=== PATIENT | male | born 1940 | race Caucasian/White ===

== ENCOUNTER 2017-06-08 19:26 | Inpatient (IN) | payer MEDICARE, BC, OTHER ==
[2017-06-08 19:57] VITALS: BP 127/86; PULSE 120; RESP 18; TEMP 98.2; O2SAT 98
[2017-06-08] MEDS ORDERED: HYDR50CA PO (20:16)
[2017-06-08] MEDS ORDERED: MACR100C2 PO (20:16)
[2017-06-08] MEDS ORDERED: LORA-474 PO ×2 (20:16)
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
[2017-06-08] MEDS ORDERED: SODIUM CHLORID 0.9% 500 ML INJ 500 ML IV ONE (20:30)
[2017-06-08] MEDS ORDERED: LORazepam 1 MG TAB PO ONE (20:30)
[2017-06-08 21:18] LABS: ALT (GPT) 21 U/L (12-78); ANION GAP 7 MEQ/L (5-15); AST (GOT) 51 U/L (15-37); BICARBONATE 22.7 MEQ/L (21.0-32.0); BLOOD UREA NITROGEN 12 MG/DL (7-18); CHLORIDE 106 MEQ/L (98-107); GLOMERULAR FILTRATION RATE 70 ML/MIN (>89); SODIUM (NA) 136 MEQ/L (136-145)
[2017-06-08 21:23] LABS: ALCOHOL LESS THAN 3 MG/DL (0-5)
--- NOTE | 2017-06-08 21:23 | RADRPT ---
EXAM DATE/TIME: 06/08/2017 20:34 [facility] COMPARISON: No previous studies available for comparison. INDICATIONS : Chest pain. MEDICAL HISTORY : None. SURGICAL HISTORY : None. ENCOUNTER: Initial ACUITY: 1 day PAIN SCORE: 5/10 LOCATION: Bilateral chest FINDINGS: Minimal bibasilar streakiness is noted consistent with atelectasis and/or scarring. The heart is top normal in size. The pulmonary vascular pattern is normal. The lungs are otherwise clear. Degenerat hamilton changes and scoliosis of the thoracic spine are noted. CONCLUSION: 1. Minimal bibasilar streakiness consistent with atelectasis and/or scarring. 2. No pulmonary edema or focal alveolar consolidation to suggest pneumonia. 3. Degenerative changes and scoliosis of the thoracic spine. Jonh Schmidt MD on June 08, 2017 at 21:19 Board Certified Radiologist. This report was verified electronically.
[2017-06-08 21:26] LABS: POTASSIUM 5.1 MEQ/L (3.5-5.1)
[2017-06-08 21:27] LABS: ACETAMINOPHEN LESS THAN 2.0 MCG/ML (10.0-30.0)
[2017-06-08 21:28] LABS: ALKALINE PHOSPHATASE 87 U/L (45-117); TOTAL BILIRUBIN ADULT 0.5 MG/DL (0.2-1.0)
[2017-06-08 21:41] LABS: AUTOMATED NEUTROPHIL # 9.3 TH/MM3 (1.8-7.7); BASOPHIL # 0.1 TH/MM3 (0-0.2); BASOPHIL % 0.6 % (0.0-2.0); EOSINOPHIL # 0.2 TH/MM3 (0-0.4); EOSINOPHIL % 1.8 % (0.0-4.0); HEMATOCRIT 46.4 % (39.0-51.0); HEMO FLAGS DIFF FINAL; LYMPH % 10.2 % (9.0-44.0); LYMPHOCYTE # 1.2 TH/MM3 (1.0-4.8); MEAN CELL VOLUME 87.8 FL (80.0-100.0); MEAN CORPUSCULAR HEMOGLOBIN 27.8 PG (27.0-34.0); MEAN CORPUSCULAR HGB CONC 31.7 % (32.0-36.0); MONO % 9.9 % (0.0-8.0); NEUT % 77.5 % (16.0-70.0); PLATELET COUNT 298 TH/MM3 (150-450); RED BLOOD COUNT 5.29 MIL/MM3 (4.50-5.90); RED CELL DISTRIBUTION WIDTH 14.1 % (11.6-17.2); WHITE BLOOD COUNT 11.9 TH/MM3 (4.0-11.0)
[2017-06-08 21:48] VITALS: BP 133/79; PULSE 97; RESP 20; O2SAT 97
[2017-06-08] MEDS ORDERED: HALOPERIDOL LACTATE 5 MG/ML AMP IM ONE (22:00)
[2017-06-08] MEDS ORDERED: SODIUM CHLOR 0.9% 1000 ML INJ 1,000 ML IV ONE (22:00)
[2017-06-08 22:15] VITALS: TEMP 98.5
[2017-06-08 23:17] VITALS: BP 111/76; PULSE 74; RESP 20; O2SAT 98
--- NOTE | 2017-06-08 23:25 | EKG ---
Date Performed: 06/08/2017 Time Performed: 20:10:57 PTAGE: 77 years EKG: SINUS TACHYCARDIA WITH FIRST DEGREE AV BLOCK MARKED LEFT AXIS DEVIATION POSSIBLE OLD INFERI OR INFARCTION ABNORMAL ECG NO PREVIOUS TRACING DOCTOR: Tiburcio Holm Interpretating Date/Time 06/08/2017 23:24:41
[2017-06-08 23:31] LABS: BLOOD, URINE NEG (NEG); COMMENT (UR) CULT NOT INDICATED; CULTURE IF INDICATED CULT NOT INDICATED; GLUCOSE,URINE NEG (NEG); KETONE, URINE NEG (NEG); NITRITE,URINE NEG (NEG); URINE COLOR YELLOW (YELLW/STRAW)
[2017-06-09] VITALS (7 sets, daily range): BP systolic 102–137; BP diastolic 59–73; PULSE 58–82; RESP 16–20; TEMP 97.6–98.3; O2SAT 97–99
[2017-06-09] MEDS ORDERED: LORazepam 2 MG/ML VIAL IV PUSH PRN (01:00)
[2017-06-09] MEDS ORDERED: LORazepam 2 MG/ML VIAL ONE (11:06)
[2017-06-09] MEDS ORDERED: HALOPERIDOL LACTATE 5 MG/ML AMP ONE (11:07)
[2017-06-09] MEDS ORDERED: ACETAMINOPHEN 325 MG TAB PO PRN (11:15)
[2017-06-09] MEDS ORDERED: LORazepam 2 MG/ML VIAL - age > 65 yrs IM PRN (11:15)
[2017-06-09] MEDS ORDERED: MAGNESIUM HYDROXIDE SUSP 30 ML CUP PO PRN (11:15)
[2017-06-09] MEDS ORDERED: ALUMINUM/MAGNESIUM/SIMETH 30 ML CUP PO PRN (11:15)
[2017-06-09] MEDS ORDERED: LORazepam 0.5 MG TAB age > 65 yrs PO PRN (11:15)
[2017-06-09] MEDS ORDERED: HALOPERIDOL LACTATE 5 MG/ML AMP IM ONE (11:30)
[2017-06-09] MEDS ORDERED: LORazepam 2 MG/ML VIAL IM ONE (11:30)
[2017-06-09] MEDS ORDERED: OLANZapine IM 10 MG VIAL IM PRN (11:30)
[2017-06-09] MEDS: NICOTINE 21 MG/24 HR PATCH T-DERMAL SCH (12:00)
[2017-06-09] MEDS: REMOVE OLD NICOTINE PATCH T-DERMAL SCH (21:00)
[2017-06-10 05:52] VITALS: BP 99/52; PULSE 55; RESP 18; TEMP 98; O2SAT 99
[2017-06-10] MEDS: NICOTINE 21 MG/24 HR PATCH T-DERMAL SCH (09:10)
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
[2017-06-10] MEDS ORDERED: diphenhydrAMINE HCL 50 MG/ML VIAL IM PRN (12:00)
[2017-06-10] MEDS ORDERED: PILL SPLITTER OTHER PRN (13:30)
--- NOTE | 2017-06-10 14:33 | PD.CONS ---
HPI Service [facility] Consult Requested By Primary Care Physician Unknown Diagnoses: History of Present Illness Mr. Mcwilliams is a 77-year-old male. He was admitted to the inpatient psychiatry care facility secondary to behavioral disturbances including aggression and delirium. We are consulted to ensure patient has no infectious etiology contributing to his delirium. He recently had a urinary tract infection. UA has been obtained and there is no evidence of an active urinary tract infection. Chest x-ray shows no evidence of pneumonia. Leukocytosis is present but thus far mild in nature and could represent reactivity rather than infection. Patient is unable to contribute any history secondary to his delirium and is alert and oriented 1. Review of Systems ROS Limitations: Altered Mental Status, Poor Historian Past Family Social History Allergies: Coded Allergies: No Known Allergies (Unverified , 06/08/17) Past Medical History Unable to obtain secondary to patient's confused state Past Surgical History Unable to obtain secondary to patient's confused state Reported Medications Reported Meds & Active Scripts Active Reported Hydroxyzine Pamoate 50 Mg Cap 50 Mg PO QID PRN Ativan (Lorazepam) 1 Mg Tab 1 Mg PO Q6H PRN Macrobid (Nitrofurantoin Monoh/Nitrofur Macro) 100 Mg Cap 100 Mg PO BID Ativan (Lorazepam) 1 Mg Tab 1 Mg PO DAILY Family History Unable to obtain secondary to patient's confused state Social History Unable to obtain secondary to patient's confused state Physical Exam Vital Signs Vital Signs Date Time Temp Pulse Resp B/P (MAP) Pulse Ox O2 Delivery O2 Flow Rate FiO2 06/10/17 05:52 98.0 55 18 99/52 (68) 99 06/09/17 15:51 98.3 82 18 137/71 (93) 97 Physical Exam GENERAL: NAD, A&Ox1 HEAD: Normocephalic. No evidence of sinusitis. NECK: Supple, trachea midline. No lymphadenopathy. EYES: No scleral icterus. No injection or drainage. CARDIOVASCULAR: Regular rate and rhythm without murmurs, gallops, or rubs. RESPIRATORY: Breath sounds equal bilaterally. No accessory muscle use. GASTROINTESTINAL: Abdomen soft, non-tender, nondistended. MUSCULOSKELETAL: No cyanosis, or edema. SKIN: Warm and dry. No evidence of cellulitis. NEURO: No focal neurological deficitis. Result Diagram: 06/08/17201906/08/172019 Imaging Last Impressions Chest X-Ray 06/08/17 0000 Signed Impressions: Service Date/Time: Thursday, June 08, 2017 20:34 - CONCLUSION: 1. Minimal bibasilar streakiness consistent with atelectasis and/or scarring. 2. No pulmonary edema or focal alveolar consolidation to suggest pneumonia. 3. Degenerative changes and scoliosis of the thoracic spine. Jonh Schmidt MD Assessment and Plan Problem List: (1) Aggressive behavior ICD Code: R45.89 - Other symptoms and signs involving emotional state Status: Acute (2) Frontal dementia ICD Code: G31.09 - Other frontotemporal dementia; F02.80 - Dementia in other diseases classified elsewhere without behavioral disturbance Status: Acute (3) Frontotemporal dementia with behavioral disturbance ICD Code: G31.09 - Other frontotemporal dementia; F02.81 - Dementia in other diseases classified elsewhere with behavioral disturbance (4) Leukocytosis ICD Code: D72.829 - Elevated white blood cell count, unspecified Assessment and Plan Assessment and plan 77-year-old male admitted secondary to exacerbation of frontal dementia and aggressive behavior Leukocytosis No evidence of urinary tract infection No evidence of skin infection No evidence of pneumonia No evidence of GI infection No evidence of sinusitis Follow CBC If leukocytosis trends towards normal, no need to follow further If leukocytosis is worsening will consider empiric antibiotic treatment Frontal lobe dementia Change in behavior Aggressive behavior Continue treatments per psychiatry care inpatient facility DVT prophylaxis Patient is active and ambulatory Raulito Gutierrez MD Jun 10, 2017 14:33
[2017-06-10] MEDS: HALOPERIDOL LACTATE 5 MG/ML AMP IM PRN ×2 (15:34→23:31)
[2017-06-10] MEDS: QUEtiapine FUMARATE 25 MG TAB PO SCH (20:44)
[2017-06-10] MEDS: diphenhydrAMINE HCL 25 MG CAP PO PRN (20:44)
[2017-06-10] MEDS: REMOVE OLD NICOTINE PATCH T-DERMAL SCH (21:00)
[2017-06-11 06:18] VITALS: BP 101/57; PULSE 63; RESP 15; TEMP 98; O2SAT 98
[2017-06-11] MEDS: REMOVE OLD NICOTINE PATCH T-DERMAL SCH (08:45)
[2017-06-11] MEDS: QUEtiapine FUMARATE 25 MG TAB PO SCH ×2 (08:45→20:52)
[2017-06-11] MEDS: NICOTINE 21 MG/24 HR PATCH T-DERMAL SCH (08:45)
[2017-06-11 09:17] LABS: AUTOMATED NEUTROPHIL # 6.2 TH/MM3 (1.8-7.7); BASOPHIL # 0.1 TH/MM3 (0-0.2); BASOPHIL % 0.6 % (0.0-2.0); EOSINOPHIL # 0.4 TH/MM3 (0-0.4); EOSINOPHIL % 4.5 % (0.0-4.0); HEMATOCRIT 47.7 % (39.0-51.0); LYMPH % 20.4 % (9.0-44.0); MEAN CELL VOLUME 88.1 FL (80.0-100.0); MEAN CORPUSCULAR HEMOGLOBIN 28.5 PG (27.0-34.0); MEAN CORPUSCULAR HGB CONC 32.4 % (32.0-36.0); MONO % 9.3 % (0.0-8.0); NEUT % 65.2 % (16.0-70.0); PLATELET COUNT 233 TH/MM3 (150-450); RED BLOOD COUNT 5.42 MIL/MM3 (4.50-5.90); RED CELL DISTRIBUTION WIDTH 14.1 % (11.6-17.2); WHITE BLOOD COUNT 9.6 TH/MM3 (4.0-11.0)
[2017-06-11 09:21] LABS: HEMO FLAGS AUTO DIFF
[2017-06-11 09:36] LABS: ANION GAP 7 MEQ/L (5-15); BICARBONATE 24.8 MEQ/L (21.0-32.0); BLOOD UREA NITROGEN 8 MG/DL (7-18); CHLORIDE 106 MEQ/L (98-107); GLOMERULAR FILTRATION RATE 77 ML/MIN (>89); HDL CHOLESTEROL 52.2 MG/DL (40.0-60.0); LDL CHOLESTEROL 92 MG/DL (0-99); POTASSIUM 4.2 MEQ/L (3.5-5.1); SODIUM (NA) 138 MEQ/L (136-145)
[2017-06-11 11:04] LABS: ACANTHOCYTES 1+ (NORMAL)
[2017-06-11 11:05] LABS: SCAN/DIFF AUTO DIFF CONFIRMED
--- NOTE | 2017-06-11 12:54 | PD.PSY.CON ---
Provisional Diagnosis Admission Date Jun 09, 2017 at 04:38 [place] I. 1. Dementia, possibly of the frontotemporal type, with behavioral disturbance Rule out component of delirium [place] II. Deferred History of Present Illness Service Psychiatry Consult Requested By Psychiatry Reason for Consult 2nd opinion Primary Care Physician Unknown HPI Chart reviewed. Pt seen and discussed with staff. Pt antonio [id number] with a hx of dementia who was admitted under a BA alleging aggressive behavior at his facility. staff educator report taht pt was aggressive yesterday and required ETO. Today pt has been calm and cooperative with care. He is unable to provide any meaningful hx. He is disorganized and tries to kiss MD's hand during rounds. Past Family Social History Coded Allergies: No Known Allergies (Unverified , 06/08/17) Past Medical History dementia Reported Medications Hydroxyzine Pamoate (Hydroxyzine Pamoate) 50 Mg Cap, 50 MG PO QID Y for ALLERGIES, CAP 0 Refills 06/08/17 Lorazepam (Ativan) 1 Mg Tab, 1 MG PO Q6H Y for ANXIETY AND/OR AGITATION, TAB 0 Refills 06/08/17 Nitrofurantoin Monohydrate Macrocrystals (Macrobid) 100 Mg Cap, 100 MG PO BID for Infection, CAP 0 Refills 06/08/17 Lorazepam (Ativan) 1 Mg Tab, 1 MG PO DAILY, TAB 0 Refills 06/08/17 Current Medications Medications (Trade) Dose Ordered Sig/Minerva Route Start Time Stop Time Status Last Admin (Tylenol) 650 mg Q4H PRN PO 06/09/17 11:15 (Milk Of Magnesia Liq) 30 ml DAILY PRN PO 06/09/17 11:15 (Mag-Al Plus Susp Liq) 30 ml Q6H PRN PO 06/09/17 11:15 (Habitrol 21 Mg Patch.24 Hr) 1 patch DAILY T-DERMAL 06/09/17 12:00 Miscellaneous Information 1 HS T-DERMAL 06/09/17 21:00 (Haldol) 2 mg TID PRN PO 06/10/17 12:00 (Haldol Inj) 2 mg TID PRN IM 06/10/17 12:00 06/10/17 23:31 (Benadryl) 25 mg Q6H PRN PO 06/10/17 12:00 06/10/17 20:44 (Benadryl Inj) 25 mg Q6H PRN IM 06/10/17 12:00 (Melatonin) 5 mg HS PRN PO 06/10/17 12:00 (SEROquel) 12.5 mg BID PO 06/10/17 21:00 06/11/17 08:45 (Pill Splitter) 1 ea UNSCH PRN OTHER 06/10/17 13:30 Family History pt unable to provide Social History Lives in [facility], born in [place]. Patient's Strengths (min. 2) In a monitored setting. Retains some verbal fluency. Physical Exam no acute distress. No gait disturbance. no abnormal movements Vital Signs Vital Signs Date Time Temp Pulse Resp B/P (MAP) Pulse Ox O2 Delivery O2 Flow Rate FiO2 06/11/17 06:18 98.0 63 15 101/57 (72) 98 06/09/17 04:05 Room Air Lab Results Test 06/11/17 08:25 White Blood Count 9.6 TH/MM3 Red Blood Count 5.42 MIL/MM3 Hemoglobin 15.4 GM/DL Hematocrit 47.7 % Mean Corpuscular Volume 88.1 FL Mean Corpuscular Hemoglobin 28.5 PG Mean Corpuscular Hemoglobin Concent 32.4 % Red Cell Distribution Width 14.1 % Platelet Count 233 TH/MM3 Mean Platelet Volume 8.6 FL Neutrophils (%) (Auto) 65.2 % Lymphocytes (%) (Auto) 20.4 % Monocytes (%) (Auto) 9.3 % Eosinophils (%) (Auto) 4.5 % Basophils (%) (Auto) 0.6 % Neutrophils # (Auto) 6.2 TH/MM3 Lymphocytes # (Auto) 2.0 TH/MM3 Monocytes # (Auto) 0.9 TH/MM3 Eosinophils # (Auto) 0.4 TH/MM3 Basophils # (Auto) 0.1 TH/MM3 CBC Comment AUTO DIFF Differential Comment AUTO DIFF CONFIRMED Acanthocytes 1+ Blood Urea Nitrogen 8 MG/DL Creatinine 0.95 MG/DL Random Glucose 101 MG/DL Calcium Level 8.9 MG/DL Sodium Level 138 MEQ/L Potassium Level 4.2 MEQ/L Chloride Level 106 MEQ/L Carbon Dioxide Level 24.8 MEQ/L Anion Gap 7 MEQ/L Estimat Glomerular Filtration Rate 77 ML/MIN Triglycerides Level 123 MG/DL Cholesterol Level 169 MG/DL LDL Cholesterol 92 MG/DL HDL Cholesterol 52.2 MG/DL Cholesterol/HDL Ratio 3.23 RATIO Mental Status Examination Speech: Other (rambling, largely incoherent) Orientation: Person Memory: Impaired (describe) Thought Process: Other (disorganized) Thought Content: Other (No delusions elicited) Hallucination Type: None Attention and Concentration: Easily Distracted Suicidal Ideation: No Homicidal Ideation: No Insight: Poor Judgment: Poor Affect if Inappropriate: Flat Mood: Other (calm) Motor Activity: Normal gait Assessment & Plan Problem List: (1) Frontotemporal dementia with behavioral disturbance ICD Codes: G31.09 - Other frontotemporal dementia; F02.81 - Dementia in other diseases classified elsewhere with behavioral disturbance Assessment & Plan I agree that pt meets BA criteria. 2nd opinion completed. Estimated LOS: days Request HC Surrog/Guard Advoc?: Yes Kristy Wilson MD Jun 11, 2017 12:54
--- NOTE | 2017-06-11 17:42 | HHI.PR ---
Subjective Remarks pleasant and cooperative no complains Objective Vitals Vital Signs Date Time Temp Pulse Resp B/P (MAP) Pulse Ox O2 Delivery O2 Flow Rate FiO2 06/11/17 06:18 98.0 63 15 101/57 (72) 98 Result Diagram: 06/11/1725 06/11/17 0825 Imaging Last Impressions Chest X-Ray 06/08/17 0000 Signed Impressions: Service Date/Time: Thursday, June 08, 2017 20:34 - CONCLUSION: 1. Minimal bibasilar streakiness consistent with atelectasis and/or scarring. 2. No pulmonary edema or focal alveolar consolidation to suggest pneumonia. 3. Degenerative changes and scoliosis of the thoracic spine. Jonh Schmidt MD Objective Remarks awake and alert pleasantly confused but cooperative and ff commands anicteric no nuchal rigidity lungs clear regular rhythm abdomen soft extremities no edema A/P Problem List: (1) Aggressive behavior ICD Code: R45.89 - Other symptoms and signs involving emotional state Status: Acute (2) Frontal dementia ICD Code: G31.09 - Other frontotemporal dementia; F02.80 - Dementia in other diseases classified elsewhere without behavioral disturbance Status: Acute (3) Frontotemporal dementia with behavioral disturbance ICD Code: G31.09 - Other frontotemporal dementia; F02.81 - Dementia in other diseases classified elsewhere with behavioral disturbance (4) Leukocytosis ICD Code: D72.829 - Elevated white blood cell count, unspecified Assessment and Plan 77-year-old male admitted secondary to exacerbation of frontal dementia and aggressive behavior Leukocytosis- reesolved -no signs of infection -WBC trended down Frontal lobe dementia Change in behavior Aggressive behavior- improved Continue treatments per psychiatry care inpatient facility DVT prophylaxis Patient is active and ambulatory will sing off- reconsult if needed Joce Storm MD Jun 11, 2017 17:42
[2017-06-11] MEDS: MELATONIN 5 MG TAB PO PRN (22:35)
[2017-06-12 05:50] VITALS: BP 119/59; PULSE 75; RESP 15; TEMP 98.4; O2SAT 98
[2017-06-12] MEDS: QUEtiapine FUMARATE 25 MG TAB PO SCH ×2 (08:51→20:49)
[2017-06-12] MEDS: NICOTINE 21 MG/24 HR PATCH T-DERMAL SCH (09:00)
[2017-06-12 11:07] LABS: HEMOGLOBIN A1a 1.2 %; HEMOGLOBIN A1b 1.6 %; HEMOGLOBIN Ao 86.2 %; HEMOGLOBIN LA1C 1.7 %; HEMOGLOBIN P3 3.3 %
[2017-06-12 12:00] VITALS: BP 111/65; PULSE 107; O2SAT 96
--- NOTE | 2017-06-12 13:18 | HHI.PYPN ---
Subjective Remarks Pt seen and discussed with staff. He had an outburst of agitation this morning but was able to be redirected and did not require agitation medications. He is compliant with medications. No SI/HI Objective Alert: Yes [place]: Person Mood: Calm Affect: Flat Memory Intact: Comment (impaird) Hallucinations: Other (none) Delusions: Yes Delusion Type: Paranoid (decreased) Suicidal: Ideation (none) Homicidal: Ideation (none) Insight/Judgment poor Vitals/IOs Vital Signs Date Time Temp Pulse Resp B/P (MAP) Pulse Ox O2 Delivery O2 Flow Rate FiO2 06/12/17 12:00 107 111/65 (80) 96 06/12/17 05:50 98.4 15 06/09/17 04:05 Room Air Assessment & Plan Problem List: (1) Frontotemporal dementia with behavioral disturbance ICD Codes: G31.09 - Other frontotemporal dementia; F02.81 - Dementia in other diseases classified elsewhere with behavioral disturbance Assessment & Plan Pt improving. Continue current tx plan. Estimated LOS: days Justification for Cont. Inpt. impairments in safety Request HC Surrog/Guard Advoc?: Yes Kristy Wilson MD Jun 12, 2017 13:18
[2017-06-12 17:58] VITALS: BP 109/78; PULSE 87; RESP 16; TEMP 98.9; O2SAT 96
[2017-06-12] MEDS: MELATONIN 5 MG TAB PO PRN (20:49)
[2017-06-12] MEDS: REMOVE OLD NICOTINE PATCH T-DERMAL SCH (20:50)
[2017-06-13 05:52] VITALS: BP 136/54; PULSE 58; RESP 18; TEMP 98.1; O2SAT 95
[2017-06-13] MEDS: NICOTINE 21 MG/24 HR PATCH T-DERMAL SCH (09:00)
[2017-06-13] MEDS: QUEtiapine FUMARATE 25 MG TAB PO SCH ×2 (09:18→21:17)
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
[2017-06-13 17:03] VITALS: BP 113/71; PULSE 73; RESP 18; TEMP 98
[2017-06-14 06:00] VITALS: BP 137/67; PULSE 69; RESP 18; TEMP 97.9; O2SAT 97
--- NOTE | 2017-06-14 08:26 | HHI.PYPN ---
Subjective Remarks Patient seen and examined. Chart reviewed. Case discussed in treatment team. Per nursing staff, patient somewhat intrusive and exit seeking. He was given Haldol 2 mg by mouth to good effect. On my examination today, the patient presents as quite confused. He is standing in his room's doorway but does not seem to know where he is at. "Where is everybody at?" He offers me some paper refuse from his trashcan. No evidence side effects from medications. No physical complaints. Review of Systems ROS Limitations: Poor Historian Other Limited ROS because of cognitive impairment Objective Alert: Yes [place]: Person Mood: Calm Affect: Blunted Memory Intact: Comment (remains impaired) Hallucinations: Other (No AVH) Delusions: No Delusion Type: Other (No delusions) Suicidal: Ideation (no SI) Homicidal: Ideation (no HI) Insight/Judgment Poor Remarks No abnormal motor movements noted. Paucity of thought. Labs Labs reviewed. Vitals/IOs Vital Signs Date Time Temp Pulse Resp B/P (MAP) Pulse Ox O2 Delivery O2 Flow Rate FiO2 06/14/17 06:00 97.9 69 18 137/67 (90) 97 Assessment & Plan Problem List: (1) Frontotemporal dementia with behavioral disturbance ICD Codes: G31.09 - Other frontotemporal dementia; F02.81 - Dementia in other diseases classified elsewhere with behavioral disturbance Assessment & Plan Titrate Seroquel to 37.5 mg twice daily for management of behaviors in the setting of his dementia. Continue to monitor on the geropsychiatric unit. Continue other medications and care as ordered. Justification for Cont. Inpt. Medication adjustments. High risk for decompensation in less restrictive environment. Discharge Planning Case discussed with counselor. Plan will be for return to facility once psychiatrically stabilized. Hopeful for discharge before the weekend. Request HC Surrog/Guard Advoc?: Yes Ross Jacques MD Jun 14, 2017 08:26
[2017-06-14] MEDS: QUEtiapine FUMARATE 25 MG TAB PO SCH ×2 (08:29→20:44)
[2017-06-14] MEDS: HALOPERIDOL 2 MG TAB PO PRN (09:00)
[2017-06-14] MEDS ORDERED: PILL SPLITTER OTHER PRN (12:15)
--- NOTE | 2017-06-14 13:29 | PD.TTN ---
Patient Problems 1. Discharge planning 2. Medication compliance 3. Knowledge deficit 4. Lack of coping skills Progress Toward Goals Provider Present: Dr. Jesusita Jacques Provider Input: Pt has Dementia and needs a few days, anticipate to return to his facility Nurse(s) Input: he was medicated this morning for aggitation with Haldol because he was intrusive and exit seeking and is calmer now and better to redirect Psychiatric Counselors Present: Barbara Thompson LCSW Psych Therapist Input: will contact facility to find out if he can return Group Spec/RT/OT/JOE Present: Al Patino OT Occupational Therapist Input: very demented , can't make a statement , confused oriented to self only pleasant but unable to participate Barbara Thompson LCSW Jun 14, 2017 13:29
[2017-06-14 18:06] VITALS: BP 131/71; PULSE 88; RESP 18; TEMP 97.8; O2SAT 97
[2017-06-15 05:40] VITALS: BP 96/60; PULSE 79; RESP 16; TEMP 98.1
[2017-06-15] MEDS: QUEtiapine FUMARATE 25 MG TAB PO SCH ×2 (09:00→20:36)
[2017-06-15 10:00] VITALS: BP 130/80; PULSE 82; RESP 16
--- NOTE | 2017-06-15 12:33 | HHI.PYPN ---
Subjective Remarks Patient seen and examined. Chart reviewed. Case discussed with nursing staff. No behavioral problems noted overnight. No PRN Haldol required overnight. On my exam this morning, patient remains a confused baseline. He is pleasant and cooperative with exam. He is eating breakfast and offers me his blueberry muffin. No mood or psychotic symptoms noted. No evidence side effects from medications. No physical complaints. Review of Systems ROS Limitations: Poor Historian Other Limited ROS because of cognitive impairment Objective Alert: Yes [place]: Person Mood: Calm Affect: Blunted (remains somewhat blunted) Memory Intact: Comment (impaired) Hallucinations: Other (No AVH) Delusions: No Delusion Type: Other (No delusions) Suicidal: Ideation (no SI) Homicidal: Ideation (no HI) Insight/Judgment Poor Remarks No motoric abnormalities noted Labs Labs reviewed. Vitals/IOs Vital Signs Date Time Temp Pulse Resp B/P (MAP) Pulse Ox O2 Delivery O2 Flow Rate FiO2 06/15/17 05:40 98.1 79 16 96/60 (72) 06/14/17 18:06 97 Intake and Output 06/15/17 06/15/17 06/16/17 08:00 16:00 00:00 Intake Total 360 ml 120 ml Balance 360 ml 120 ml BP rechecked 130/80. Assessment & Plan Problem List: (1) Frontotemporal dementia with behavioral disturbance ICD Codes: G31.09 - Other frontotemporal dementia; F02.81 - Dementia in other diseases classified elsewhere with behavioral disturbance Assessment & Plan Patient seems to be doing well from psych standpoint. Continue Seroquel as ordered. Continue to monitor on the geropsychiatric unit. Continue other medications and care as ordered. Justification for Cont. Inpt. Risk for decompensation Discharge Planning If the patient has an uneventful evening, possible discharge back to facility tomorrow, . Request HC Surrog/Guard Advoc?: Yes Ross Jacques MD Jun 15, 2017 12:33
[2017-06-15 12:38] VITALS: BP 132/80; PULSE 88; RESP 16
[2017-06-15 18:25] VITALS: BP 148/76; PULSE 104; RESP 16; TEMP 97.8; O2SAT 96
[2017-06-15] MEDS: diphenhydrAMINE HCL 25 MG CAP PO PRN (20:36)
[2017-06-15] MEDS: MELATONIN 5 MG TAB PO PRN (20:36)
[2017-06-16 05:48] VITALS: BP 132/60; PULSE 79; RESP 18; TEMP 97.7
[2017-06-16] MEDS ORDERED: QUET1TAB7 PO (08:35)
[2017-06-16] MEDS ORDERED: GNP5TAB6 PO (08:35)
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
[2017-06-16] MEDS: QUEtiapine FUMARATE 25 MG TAB PO SCH ×2 (10:38→20:12)
[2017-06-16] MEDS: HALOPERIDOL LACTATE 5 MG/ML AMP IM PRN (16:13)
[2017-06-16 18:03] VITALS: BP 145/82; PULSE 97; RESP 17; TEMP 98.1; O2SAT 98
[2017-06-16] MEDS: diphenhydrAMINE HCL 25 MG CAP PO PRN (20:13)
[2017-06-16] MEDS: MELATONIN 5 MG TAB PO PRN (20:13)
[2017-06-17 06:00] VITALS: BP 108/52; PULSE 66; RESP 17; TEMP 97.8; O2SAT 96
[2017-06-17] MEDS: QUEtiapine FUMARATE 25 MG TAB PO SCH ×2 (09:05→20:27)
--- NOTE | 2017-06-17 11:52 | HHI.PYPN ---
Subjective Remarks Patient seen and examined. Chart reviewed. Per notes, the patient was banging his walker against a door yesterday and received Haldol IM. Case discussed with nursing staff who reports patient has been no further behavioral problem. For me today, patient is calm and cooperative. He remains confused, as at baseline. No physical complaints. Family session with sister and daughter today. We discuss patient's diagnosis and response to treatment on the unit. We discuss the hazards of ongoing hospitalization including risk of fall, infection and other misadventure. Family is working with counselor on new placement as, I am told, patient's referring facility is now refusing to accept him back. Consequently, all are agreed that it makes sense to retain patient on the unit for the time being. We discuss pharmacotherapy with Seroquel, and I discuss with risks and benefits of this medication, highlighting the FDA black-box warning for increased risk of in the demented elderly. I spent ~30min discussing patient's hospital course, treatment plan and discharge plan with family. Review of Systems ROS Limitations: Poor Historian Except as stated in HPI: all other systems reviewed are Neg Objective Alert: Yes [place]: Person Mood: Calm Affect: Blunted Memory Intact: Comment (impaired) Hallucinations: Other (No hallucinations) Delusions: No Delusion Type: Other (No delusions) Suicidal: Ideation (no SI) Homicidal: Ideation (no HI) Insight/Judgment Poor Remarks No motor abnormalities noted Labs Labs reviewed. Vitals/IOs Vital Signs Date Time Temp Pulse Resp B/P (MAP) Pulse Ox O2 Delivery O2 Flow Rate FiO2 06/17/17 06:00 97.8 66 17 108/52 (70) 96 Intake and Output 06/17/17 06/17/17 06/18/17 08:00 16:00 00:00 Intake Total 1080 ml Balance 1080 ml Assessment & Plan Problem List: (1) Frontotemporal dementia with behavioral disturbance ICD Codes: G31.09 - Other frontotemporal dementia; F02.81 - Dementia in other diseases classified elsewhere with behavioral disturbance Assessment & Plan Patient's minor episode of behavioral disturbance yesterday does not necessitate adjustment in current pharmacotherapy, and at this point risks of doing so likely outweigh benefits. If behavioral disturbance persists, could consider titrating Seroquel. Continue to monitor on the inpatient unit. Continue other medications and care as ordered. Justification for Cont. Inpt. Risk for decompensation in less restrictive environment. Discharge Planning Counselor and family working on new placement. Request HC Surrog/Guard Advoc?: Yes Ross Jacques MD Jun 17, 2017 11:52
[2017-06-17] MEDS: HALOPERIDOL 2 MG TAB PO PRN ×2 (18:04→20:27)
[2017-06-17] MEDS: MELATONIN 5 MG TAB PO PRN (20:27)
[2017-06-18 05:52] VITALS: BP 102/58; PULSE 95; RESP 18; TEMP 97.6; O2SAT 95
[2017-06-18] MEDS: QUEtiapine FUMARATE 25 MG TAB PO SCH ×2 (10:11→20:07)
--- NOTE | 2017-06-18 14:03 | HHI.PYPN ---
Subjective Remarks Patient was seen and case discussed with nursing. Patient is eating and sleeping well her nursing. He was talkative with nursing with during this interview as volitionally mute. Nods his head throughout the interview. Admits to feeling sad. Denies suicidal or homicidal ideation intent or plan. Largely seclusive to self Objective Alert: Yes [place]: Person Mood: Calm Affect: Flat Memory Intact: Comment (impaired) Hallucinations: Other (would not answer) Delusions: No Delusion Type: Other (would not answer) Suicidal: Ideation (no SI) Homicidal: Ideation (no HI) Insight/Judgment Poor Vitals/IOs Vital Signs Date Time Temp Pulse Resp B/P (MAP) Pulse Ox O2 Delivery O2 Flow Rate FiO2 06/18/17 05:52 97.6 95 18 102/58 (73) 95 Assessment & Plan Problem List: (1) Frontotemporal dementia with behavioral disturbance ICD Codes: G31.09 - Other frontotemporal dementia; F02.81 - Dementia in other diseases classified elsewhere with behavioral disturbance Assessment & Plan Continue current treatment plan Justification for Cont. Inpt. Patient will decompensate in a less restrictive setting Request HC Surrog/Guard Advoc?: Yes Basilio eRyes DO Jun 18, 2017 14:03
[2017-06-19 05:14] VITALS: BP 138/85; PULSE 119; RESP 18; TEMP 98.8
[2017-06-19] MEDS: QUEtiapine FUMARATE 25 MG TAB PO SCH ×2 (09:21→20:11)
--- NOTE | 2017-06-19 12:53 | HHI.PYPN ---
Subjective Remarks Patient was seen and case discussed with nursing. Patient slept a couple of hours. He has been refusing his night medications. He is no longer mute. However, he is elevated and is singing throughout the interview, responding inappropriately. Responding to internal stimuli. Largely seclusive to self. Objective Alert: Yes [place]: Person Mood: Calm Affect: Labile, Blunted Memory Intact: Comment (impaired) Hallucinations: Other (would not answer) Delusions: No Delusion Type: Other (internal stimuli) Suicidal: Ideation (no SI) Homicidal: Ideation (no HI) Insight/Judgment Poor Vitals/IOs Vital Signs Date Time Temp Pulse Resp B/P (MAP) Pulse Ox O2 Delivery O2 Flow Rate FiO2 06/19/17 05:14 98.8 119 18 138/85 (102) 06/18/17 05:52 95 Intake and Output 06/19/17 06/19/17 06/20/17 08:00 16:00 00:00 Intake Total 360 ml Balance 360 ml Assessment & Plan Problem List: (1) Frontotemporal dementia with behavioral disturbance ICD Codes: G31.09 - Other frontotemporal dementia; F02.81 - Dementia in other diseases classified elsewhere with behavioral disturbance Assessment & Plan Continue current treatment plan Justification for Cont. Inpt. Patient would decompensate in a less restrictive setting Request HC Surrog/Guard Advoc?: Yes Basilio Reyes DO Jun 19, 2017 12:53
[2017-06-19 16:52] VITALS: BP 136/84; PULSE 88; RESP 18; TEMP 98.2; O2SAT 100
[2017-06-19] MEDS: diphenhydrAMINE HCL 25 MG CAP PO PRN (22:01)
[2017-06-20 05:17] VITALS: BP 99/62; PULSE 61; RESP 16; TEMP 98.2
[2017-06-20] MEDS: QUEtiapine FUMARATE 25 MG TAB PO SCH ×3 (09:18→22:05)
--- NOTE | 2017-06-20 10:54 | HHI.PYPN ---
Subjective Remarks Patient seen in day room with nurse Laisha, discussed with treatment team, it appears patient showing some "sundowning". Needed and when necessary last night. However at this time patient sitting quietly in day room he is alert diffusely confused all 4 spheres, though no behavioral issues. Will adjust Seroquel to 2 PM and 10 PM hopefully placement will be available for the next 24 -48 hours Review of Systems Except as stated in HPI: all other systems reviewed are Neg Objective Alert: Yes [place]: Person Mood: Calm Affect: Labile, Blunted Memory Intact: Comment (impaired) Hallucinations: Other (would not answer) Delusions: No Delusion Type: Other (internal stimuli) Suicidal: Ideation (no SI) Homicidal: Ideation (no HI) Insight/Judgment Very poor Vitals/IOs Vital Signs Date Time Temp Pulse Resp B/P (MAP) Pulse Ox O2 Delivery O2 Flow Rate FiO2 06/20/17 05:17 98.2 61 16 99/62 (74) 06/19/17 16:52 100 Intake and Output 06/20/17 06/20/17 06/21/17 08:00 16:00 00:00 Intake Total 360 ml Balance 360 ml Assessment & Plan Problem List: (1) Frontotemporal dementia with behavioral disturbance ICD Codes: G31.09 - Other frontotemporal dementia; F02.81 - Dementia in other diseases classified elsewhere with behavioral disturbance Assessment & Plan Estimated LOS: days patient remains confused demented, no behavior problems at this time, though the was some issues yesterday evening necessitating a when necessary. See medication adjustment above Justification for Cont. Inpt. This time patient will decompensate if not placed in an appropriate level of care Discharge Planning To be determined Request HC Surrog/Guard Advoc?: Yes Neil Gonzales MD Jun 20, 2017 10:54
[2017-06-20 18:00] VITALS: BP 126/82; PULSE 87; RESP 17; TEMP 97.9; O2SAT 98
[2017-06-21 06:00] VITALS: BP 112/67; PULSE 68; RESP 16; TEMP 97.8; O2SAT 95
--- NOTE | 2017-06-21 13:16 | HHI.PYPN ---
Subjective Remarks Patient to be discharged today to [facility]. Is a bed available today at that facility. Dr. Jacques's dictated discharge summary on 06/16, this prescriptions have been written for him already also. Patient seen today by me , no significant changes in his mental status exam or his behaviors. Remains diffusely confused and disoriented less patient to be discharged today follow- up of multiple services through [facility]. Discharge orders written by me today Review of Systems Except as stated in HPI: all other systems reviewed are Neg Objective Alert: Yes [place]: Person Mood: Calm Affect: Labile, Blunted Memory Intact: Comment (impaired) Hallucinations: Other (would not answer) Delusions: No Delusion Type: Other (internal stimuli) Suicidal: Ideation (no SI) Homicidal: Ideation (no HI) Insight/Judgment Poor Vitals/IOs Vital Signs Date Time Temp Pulse Resp B/P (MAP) Pulse Ox O2 Delivery O2 Flow Rate FiO2 06/21/17 06:00 97.8 68 16 112/67 (82) 95 Intake and Output 06/21/17 06/21/17 06/22/17 08:00 16:00 00:00 Intake Total 240 ml Balance 240 ml Assessment & Plan Problem List: (1) Frontotemporal dementia with behavioral disturbance ICD Codes: G31.09 - Other frontotemporal dementia; F02.81 - Dementia in other diseases classified elsewhere with behavioral disturbance Assessment & Plan Estimated LOS: days patient to be discharged today to [facility] Rx 1 month follow-up mental health services through that facility Justification for Cont. Inpt. Patient to be discharged today to [facility] Discharge Planning Discharged today to [facility] Request HC Surrog/Guard Advoc?: Yes Neil Gonzales MD Jun 21, 2017 13:15
[2017-06-21] MEDS: QUEtiapine FUMARATE 25 MG TAB PO SCH (15:22)
== END 2017-06-21 15:25 | DRG 57 ==
LOC: NEPD 19:26 → NEDA 06-09 04:38 → H270 06-09 10:01 → H250 06-13 16:18
PROVIDERS: ADMIT Psychiatry & Neurology Psychiatry; ATTEND Psychiatry & Neurology Psychiatry
DX: G31.09 Other frontotemporal neurocognitive disorder (principal); F05 Delirium due to known physiological condition; F02.81 Dementia in other diseases classified elsewhere, unspecified severity, with behavioral disturbance; H91.90 Unspecified hearing loss, unspecified ear; R00.0 Tachycardia, unspecified; R32 Unspecified urinary incontinence; D72.829 Elevated white blood cell count, unspecified
CPT/HCPCS: 71010; 80048; 80053; 80061; 80307; 81001; 83036; 84443; 85025; 93005; 96361; 96372; 96374; J1630; J2060; J7030; J7040